=== PATIENT | female | born 1965 | race Two or more races ===

== ENCOUNTER 2022-04-16 23:25 | Emergency (ER) | payer OTHER ==
[~2022-04-16] VITALS: Ht 160 cm; Wt 63.0 kg
[2022-04-16] MEDS ORDERED: SYNTHROID175 MCG (23:46)
== END 2022-04-17 01:12 | disposition home or self-care (01) ==
LOC: ER 23:25
DX: B00.2 Herpesviral gingivostomatitis and pharyngotonsillitis (principal)